=== PATIENT | female | born 1970 | race Caucasian/White ===

== ENCOUNTER 2016-06-13 10:56 | Day surgery (SDC) | payer MEDICAID ==
[~2016-06-13] VITALS: Ht 157.5 cm; Wt 69.9 kg
[~2016-06-13 10:56] MED LIST: ALBUTEROL2.5 MG/NEB INH; ALPRAZOLAM0.5 M3 PO; AMITRIPTYLINE25 MG PO; AUGMENTIN 875-1 EACH PO; CATAPRES0.2 MG PO; CLONIDINE 0.2M0.2 MG PO; CLONIDINE HCL0.1 M1 PO; ELAVIL GENERIC10 MG PO; ERYTHROMYC3.5 GM/TUB OP; GOOD NEIGHBOR200 M1 PO; LACTULOSE10 GM/15 M PO; LISINOPRIL 20MG20 MG PO; LISINOPRIL/HCTZ1 TA3 PO; LISINOPRIL20 MG PO; LYRICA150 MG PO; MACROBID 100MG100 MG PO; MIRALAX(PO17 GM/1 PA PO; NARCO; NEURONTIN 100100 MG PO; NEURONTIN100 MG PO; NEURONTIN800 MG PO; OXYCODONE AND A1 TA4 PO; PHENERGAN25 M3 PO; PREDNISONE50 MG PO; PROVENTIL0.09 MG/AC IH; STERAPRED DS10 MG PO; TRAMADOL 50MG T50 MG PO; TRAMADOL50 M1 PO; TYLENOL W/CODEI1 TA2 PO; ULTRAM ER100 MG PO
--- NOTE | 2016-06-13 13:30 | Operative Note ---
Upper GI Endoscopy Procedure date: 06/13/16 Date of : 66 Procedure:Upper GI Endoscopy with biopsy Indications: nausea and vomiting Performing Provider: Noah Jimenes Referring Provider: Prem Sedation: MAC Procedure: Prior to the procedure, a history and physical exam was performed, and patients medications and allergies were reviewed. The risks and benefits of the procedure and the sedation options and risks were discussed with the patient. All questions were answered and informed consent was obtained. The patient was brought to the procedure room. Patient identification and proposed procedure were verified by the physician and the nurse. The patient was placed in a left lateral decubitus position and the scope was passed under direct vision. Throughout the procedure, the patient's blood pressure, pulse, and oxygen saturations were monitored continuously. The endoscope was introduced through the mouth, and advanced to the second part of duodenum. The upper GI endoscopy was accomplished without difficulty. The patient tolerated the procedure well. Findings: 1) Normal antrum - biopsied 2) Minimal erythema at GE junction - no erosion 3) Remainder WNL Immediate complications: None EBL (ml): 1 Impression: 1) Mild reflux esophagitis 2) Biopsies done in antrum to R/O antral gastritis/H pylori Recommendations: 1) f/u pathology 2) consider PPI 1/2 hr ac q AM at 1790
--- NOTE | 2016-06-13 13:33 | Operative Note ---
See Addendum Colonoscopy Procedure date: 06/13/16 Date of : 66 Procedure:Colonoscopy with polypectomy Indications: Lower abdominal pain refractory to therapy Performing Provider: Noah Jimenes Provider: Prem Sedation: MAC Procedure: Prior to the procedure, a history and physical exam was performed, and patient medications and allergies were reviewed. The risks and benefits of the procedure and the sedation options and risks were discussed with the patient. All questions were answered and informed consent was obtained. The patient was brought to the procedure room. Patient identification and proposed procedure were verified by the physician and the nurse. The patient was placed in a left lateral decubitus position and the scope was passed under direct vision. Throughout the procedure, the patient's blood pressure, pulse, and oxygen saturations were monitored continuously. The colonoscope was introduced through the anus and advanced to the terminal ileum with identification of the appendiceal orifice and ileocecal valve. The colonoscopy was performed without difficulty. The patient tolerated the procedure well. The quality of the bowel preparation was good. Findings: 1) Polyp sessile 4-5mm removed with cold snare and retrieved 2) Normal TI/colon otherwise Immediate complications: None EBL (ml): 1 Impression: 1) Benign polyp 2) No c/o abdominal pain Recommendations: 1) f/u pathology 2) repeat in 5-10yr depending on pathology at 0527
[2016-06-13 14:05] VITALS: BP 138/86
== END 2016-06-13 13:45 | disposition home or self-care (01) ==
LOC: SDC 10:56
PROVIDERS: Internal Medicine Gastroenterology
PROC: 0DB68ZX Excision of Stomach, Via Natural or Artificial Opening Endoscopic, Diagnostic (ICD-10-PCS; 2016-06-13)
PROC: 0DBE8ZX Excision of Large Intestine, Via Natural or Artificial Opening Endoscopic, Diagnostic (ICD-10-PCS; principal; 2016-06-13 11:00)
DX: Z12.11 Encounter for screening for malignant neoplasm of colon (principal); R10.13 Epigastric pain; K63.5 Polyp of colon; R11.2 Nausea with vomiting, unspecified; K21.0 Gastro-esophageal reflux disease with esophagitis